=== PATIENT | male | born 1975 | race Caucasian/White ===

== ENCOUNTER 2018-07-21 19:24 | Emergency (ER) | payer SELFPAY ==
[~2018-07-21] VITALS: Ht 165.1 cm; Wt 70.3 kg
[2018-07-21 19:29] VITALS: Ht 165.1 cm; Wt 70.3 kg
[2018-07-21 21:19] VITALS: BP 147/73
== END 2018-07-21 21:19 | disposition home or self-care (01) ==
LOC: ED 19:24
DX: S61.422A Laceration with foreign body of left hand, initial encounter (principal); X58.XXXA Exposure to other specified factors, initial encounter; Y93.89 Activity, other specified; Y92.89 Other specified places as the place of occurrence of the external cause; Y99.8 Other external cause status
CPT/HCPCS: J2001